=== PATIENT | male | born 1935 | race Caucasian/White ===

== ENCOUNTER 2017-04-22 11:16 | Inpatient (IN) | payer OTHER ==
[~2017-04-22] VITALS: Ht 175.3 cm; Wt 85.5 kg
[~2017-04-22 11:16] MED LIST: ALBU90OI61 INH; AMLO5 PO; AMOCLA875 PO; ASPI81CH PO; AZIT250 PO; AZOR PO; BENAML10/5 PO; CEFP500 PO; CEPH500 PO; Ciprodex Otic7.5 ML RIGHTEAR; Citalopram HBr20 MG PO; Cleocin HCl150 MG PO; DICL25ER PO; DOCU100 PO; GLIP10ER PO; Glucophage1000 MG PO; HYDCHL25 PO; LOSA50 PO; MECL25 PO; METO100ER PO; Melatonin5 M1 PO; NEBI10 PO; OLME20 PO; OXYACE5T PO; PROCODE120 PO
[2017-04-22 11:54] LABS: BASOPHILS ABSOLUTE AUTO 0.04 K/mm3 (0.00-0.23); BASOPHILS PERCENT AUTO 1 % (0-2); EOSINOPHILS ABSOLUTE AUTO 0.04 K/mm3 (0.00-0.68); EOSINOPHILS PERCENT AUTO 1 % (0-6); Hematocrit 38.2 % (37.0-53.0); Hemoglobin 12.7 g/dL (13.5-17.5); IMMATURE GRAN ABSOLUTE AUTO 0.02 K/mm3 (0.00-0.10); IMMATURE GRAN PERCENT AUTO 0 % (0-1); LYMPHOCYTES ABSOLUTE AUTO 0.65 K/mm3 (0.84-5.20); LYMPHOCYTES PERCENT AUTO 10 % (21-46); MONOCYTES ABSOLUTE AUTO 0.75 K/mm3 (0.16-1.47); MONOCYTES PERCENT AUTO 11 % (4-13); Mean Corpuscular HGB 28.7 pg (26.0-34.0); Mean Corpuscular HGB Conc 33.2 g/dL (31.5-36.5); Mean Corpuscular Volume 86 fL (80-100); Mean Platelet Volume 11.1 fL (9.1-12.4); NEUTROPHILS ABSOLUTE AUTO 5.28 K/mm3 (1.96-9.15); NEUTROPHILS PERCENT AUTO 78 % (41-73); Platelet Count 187 K/mm3 (150-400); RDW Coefficient Variation 13.1 % (11.7-14.2); RDW Standard Deviation 40.8 fL (35.1-46.3); Red Blood Cell Count 4.43 M/mm3 (4.30-5.90); White Blood Cell Count 6.78 K/mm3 (4.00-11.30)
[2017-04-22 12:15] LABS: Alanine Aminotransfer (ALT/SGP 22 U/L (12-78); Albumin, Blood 3.3 g/dL (3.4-5.0); Alk Phos 68 U/L (50-136); Anion Gap 10 mmol/L (6-16); Aspartate Aminotrans (AST/SGOT 18 U/L (12-37); Bilirubin, Total 0.4 mg/dL (0.1-1.0); Blood Urea Nitrogen 19 mg/dL (8-24); Bun/Creatinine Ratio 14.7 (12.0-20.0); CO2, Blood 23 mmol/L (21-32); Calcium, Blood 8.4 mg/dL (8.5-10.1); Chloride, Blood 107 mmol/L (98-108); Creatinine, Blood 1.29 mg/dL (0.60-1.20); Globulin, Blood 3.3 g/dL (2.2-4.0); Glomerular Filtration Rate 57 (60-); Glucose, Blood 201 mg/dL (70-99); Potassium, Blood 3.4 mmol/L (3.5-5.5); Sodium, Blood 140 mmol/L (136-145); Total Protein, Blood 6.6 g/dL (6.4-8.2)
[2017-04-22 12:17] LABS: Influenza A Positive (NEGATIVE); Influenza B Negative (NEGATIVE)
[2017-04-22 16:54] LABS: Troponin I <0.015 ng/mL (0.000-0.040)
[2017-04-22 18:11] LABS: Source, Urine Clean Catch
[2017-04-22 18:20] LABS: Appearance, Urine Clear (Clear); Bilirubin, Urine Neg (Neg); Blood, Urine Neg (Neg); Color, Urine Yellow (P-Yellow); Glucose Qualitative, Urine Neg (Neg); Ketones, Urine Neg (Neg); Leukocyte Esterase, Urine Neg (Neg); Nitrite, Urine Neg (Neg); Protein, Urine 2+ (Neg); Urobilinogen, Urine NORM (Normal)
[2017-04-22 18:41] LABS: Bacteria Rare /hpf; Red Blood Cells, Urine 0-2 /hpf (0-2); Squamous Epithelial Cells Rare /hpf (Few); White Blood Cells, Urine 0-2 /hpf (0-5)
[2017-04-22 21:49] LABS: Calcium, Blood 7.8 mg/dL (8.5-10.1); Creatinine, Blood 1.38 mg/dL (0.60-1.20); Potassium, Blood 3.6 mmol/L (3.5-5.5)
[2017-04-23 04:50] LABS: BASOPHILS ABSOLUTE AUTO 0.02 K/mm3 (0.00-0.23); BASOPHILS PERCENT AUTO 0 % (0-2); EOSINOPHILS ABSOLUTE AUTO 0.01 K/mm3 (0.00-0.68); EOSINOPHILS PERCENT AUTO 0 % (0-6); Hematocrit 33.5 % (37.0-53.0); IMMATURE GRAN ABSOLUTE AUTO 0.02 K/mm3 (0.00-0.10); IMMATURE GRAN PERCENT AUTO 0 % (0-1); LYMPHOCYTES ABSOLUTE AUTO 1.14 K/mm3 (0.84-5.20); LYMPHOCYTES PERCENT AUTO 16 % (21-46); MONOCYTES ABSOLUTE AUTO 0.64 K/mm3 (0.16-1.47); MONOCYTES PERCENT AUTO 9 % (4-13); Mean Corpuscular HGB Conc 32.8 g/dL (31.5-36.5); Mean Corpuscular Volume 88 fL (80-100); Mean Platelet Volume 10.9 fL (9.1-12.4); NEUTROPHILS ABSOLUTE AUTO 5.15 K/mm3 (1.96-9.15); NEUTROPHILS PERCENT AUTO 74 % (41-73); Platelet Count 150 K/mm3 (150-400); RDW Coefficient Variation 13.4 % (11.7-14.2); RDW Standard Deviation 43.8 fL (35.1-46.3); Red Blood Cell Count 3.79 M/mm3 (4.30-5.90); White Blood Cell Count 6.98 K/mm3 (4.00-11.30)
[2017-04-23 05:07] LABS: Albumin, Blood 2.9 g/dL (3.4-5.0); Bilirubin, Total 0.2 mg/dL (0.1-1.0); Calcium, Blood 7.2 mg/dL (8.5-10.1); Creatinine, Blood 1.27 mg/dL (0.60-1.20); Globulin, Blood 2.9 g/dL (2.2-4.0); Magnesium, Blood 1.4 mg/dL (1.6-2.4); Potassium, Blood 3.8 mmol/L (3.5-5.5); Total Protein, Blood 5.8 g/dL (6.4-8.2)
[2017-04-24] MEDS ORDERED: OSELTAMIVIR PO (09:56)
[2017-04-24] MEDS ORDERED: DELTASONE20 MG PO (10:03)
== END 2017-04-24 10:48 | disposition home or self-care (01) | DRG 194 ==
LOC: ER 11:16 → MEDS 14:14 → PCU 16:15
PROVIDERS: Emergency Medicine; Family Medicine; Internal Medicine
DX: J10.1 Influenza due to other identified influenza virus with other respiratory manifestations (principal); I42.9 Cardiomyopathy, unspecified; N17.9 Acute kidney failure, unspecified; E11.22 Type 2 diabetes mellitus with diabetic chronic kidney disease; E11.65 Type 2 diabetes mellitus with hyperglycemia; E86.0 Dehydration; J45.909 Unspecified asthma, uncomplicated; R53.81 Other malaise; R32 Unspecified urinary incontinence; I12.9 Hypertensive chronic kidney disease with stage 1 through stage 4 chronic kidney disease, or unspecified chronic kidney disease; N18.9 Chronic kidney disease, unspecified; F32.9 Major depressive disorder, single episode, unspecified; E87.6 Hypokalemia; R09.02 Hypoxemia; T38.0X5A Adverse effect of glucocorticoids and synthetic analogues, initial encounter; Z79.82 Long term (current) use of aspirin; Z79.899 Other long term (current) drug therapy; Z79.84 Long term (current) use of oral hypoglycemic drugs; Z88.2 Allergy status to sulfonamides
CPT/HCPCS: 36415; 71045; 71046; 80048; 80053; 81001; 82947; 83605; 83735; 83880; 84443; 84484; 85025; 87804; 93005; 93010; 93306; 94640; 94760; 96361; 96372; 96374; 99285; J0456; J0696; J1650; J2405; J3480; J7030; J7050

== ENCOUNTER 2017-07-17 14:05 | Emergency (ER) | payer OTHER ==
[~2017-07-17] VITALS: Ht 177.8 cm; Wt 84.4 kg
[~2017-07-17 14:05] MED LIST changes: +DELTASONE20 MG PO; +OSELTAMIVIR PO
[2017-07-17 14:52] LABS: BASOPHILS ABSOLUTE AUTO 0.07 K/mm3 (0.00-0.23); BASOPHILS PERCENT AUTO 1 % (0-2); EOSINOPHILS ABSOLUTE AUTO 0.49 K/mm3 (0.00-0.68); EOSINOPHILS PERCENT AUTO 6 % (0-6); Hematocrit 39.6 % (37.0-53.0); Hemoglobin 13.2 g/dL (13.5-17.5); IMMATURE GRAN ABSOLUTE AUTO 0.03 K/mm3 (0.00-0.10); IMMATURE GRAN PERCENT AUTO 0 % (0-1); LYMPHOCYTES ABSOLUTE AUTO 1.67 K/mm3 (0.84-5.20); LYMPHOCYTES PERCENT AUTO 21 % (21-46); MONOCYTES ABSOLUTE AUTO 0.87 K/mm3 (0.16-1.47); MONOCYTES PERCENT AUTO 11 % (4-13); Mean Corpuscular HGB 28.9 pg (26.0-34.0); Mean Corpuscular HGB Conc 33.3 g/dL (31.5-36.5); Mean Corpuscular Volume 87 fL (80-100); Mean Platelet Volume 10.6 fL (9.1-12.4); NEUTROPHILS ABSOLUTE AUTO 5.03 K/mm3 (1.96-9.15); NEUTROPHILS PERCENT AUTO 62 % (41-73); Platelet Count 257 K/mm3 (150-400); RDW Coefficient Variation 14.1 % (11.7-14.2); RDW Standard Deviation 45.1 fL (35.1-46.3); Red Blood Cell Count 4.56 M/mm3 (4.30-5.90); White Blood Cell Count 8.16 K/mm3 (4.00-11.30)
[2017-07-17 15:10] LABS: Alanine Aminotransfer (ALT/SGP 17 U/L (12-78); Albumin, Blood 3.5 g/dL (3.4-5.0); Albumin/Globulin Ratio 0.9 (0.8-1.8); Alk Phos 91 U/L (50-136); Anion Gap 7 mmol/L (6-16); Aspartate Aminotrans (AST/SGOT 22 U/L (12-37); Bilirubin, Total 0.7 mg/dL (0.1-1.0); Blood Urea Nitrogen 25 mg/dL (8-24); Bun/Creatinine Ratio 20.3 (12.0-20.0); CO2, Blood 24 mmol/L (21-32); Calcium, Blood 8.9 mg/dL (8.5-10.1); Chloride, Blood 104 mmol/L (98-108); Creatinine, Blood 1.23 mg/dL (0.60-1.20); Glomerular Filtration Rate >60 (60-); Glucose, Blood 244 mg/dL (70-99); Potassium, Blood 4.3 mmol/L (3.5-5.5); Sodium, Blood 135 mmol/L (136-145); Total Protein, Blood 7.5 g/dL (6.4-8.2)
[2017-07-17 16:50] LABS: Troponin I <0.015 ng/mL (0.000-0.040)
== END 2017-07-17 18:58 | disposition home or self-care (01) ==
LOC: ER 14:05
PROVIDERS: Emergency Medicine
DX: S01.01XA Laceration without foreign body of scalp, initial encounter (principal); I99.8 Other disorder of circulatory system; Z23 Encounter for immunization; I10 Essential (primary) hypertension; E11.9 Type 2 diabetes mellitus without complications; Z88.2 Allergy status to sulfonamides; Z79.899 Other long term (current) drug therapy; Z79.82 Long term (current) use of aspirin; Z79.84 Long term (current) use of oral hypoglycemic drugs; Z79.52 Long term (current) use of systemic steroids; W18.30XA Fall on same level, unspecified, initial encounter
CPT/HCPCS: 36415; 70450; 72100; 72125; 72170; 80053; 84484; 85025; 90471; 90714; 93005; 93010; 96360; 96361; 99284; J7120

== ENCOUNTER 2018-04-09 17:14 | Observation (INO) | payer OTHER ==
[~2018-04-09] VITALS: Ht 208.3 cm; Wt 84.3 kg
[~2018-04-09 17:14] MED LIST changes: -ASPI81CH PO; +Aspirin EC81 MG PO
[2018-04-09 18:42] LABS: PCO2 Arterial 37.7 mmHg (35-45); PO2 Arterial 69.3 mmHg (80-100); pH Blood Arterial 7.45 (7.35-7.45)
[2018-04-09 18:48] LABS: BASOPHILS ABSOLUTE AUTO 0.04 K/mm3 (0.00-0.23); BASOPHILS PERCENT AUTO 0 % (0-2); EOSINOPHILS ABSOLUTE AUTO 0.02 K/mm3 (0.00-0.68); EOSINOPHILS PERCENT AUTO 0 % (0-6); Hematocrit 41.1 % (37.0-53.0); Hemoglobin 13.8 g/dL (13.5-17.5); IMMATURE GRAN ABSOLUTE AUTO 0.04 K/mm3 (0.00-0.10); IMMATURE GRAN PERCENT AUTO 0 % (0-1); LYMPHOCYTES ABSOLUTE AUTO 1.47 K/mm3 (0.84-5.20); LYMPHOCYTES PERCENT AUTO 14 % (21-46); MONOCYTES PERCENT AUTO 8 % (4-13); Mean Corpuscular HGB 29.4 pg (26.0-34.0); Mean Corpuscular HGB Conc 33.6 g/dL (31.5-36.5); Mean Corpuscular Volume 87 fL (80-100); Mean Platelet Volume 11.1 fL (9.1-12.4); NEUTROPHILS ABSOLUTE AUTO 8.11 K/mm3 (1.96-9.15); NEUTROPHILS PERCENT AUTO 77 % (41-73); Platelet Count 206 K/mm3 (150-400); RDW Coefficient Variation 13.7 % (11.7-14.2); RDW Standard Deviation 43.4 fL (35.1-46.3); White Blood Cell Count 10.48 K/mm3 (4.00-11.30)
[2018-04-09 18:56] LABS: Albumin, Blood 3.5 g/dL (3.4-5.0); Albumin/Globulin Ratio 0.9 (0.8-1.8); Bilirubin, Total 0.6 mg/dL (0.1-1.0); Bun/Creatinine Ratio 15.1 (12.0-20.0); Calcium, Blood 9.5 mg/dL (8.5-10.1); Creatinine, Blood 1.26 mg/dL (0.60-1.20); Globulin, Blood 3.9 g/dL (2.2-4.0); Magnesium, Blood 1.4 mg/dL (1.6-2.4); Potassium, Blood 3.5 mmol/L (3.5-5.5); Total Protein, Blood 7.4 g/dL (6.4-8.2)
[2018-04-09 19:03] LABS: Influenza A Negative (NEGATIVE); Influenza B Negative (NEGATIVE)
[2018-04-09 19:47] LABS: Source, Urine Catheter
[2018-04-09 20:03] LABS: Bilirubin, Urine Neg (Neg); Blood, Urine 4+ (Neg); Glucose Qualitative, Urine Neg (Neg); Ketones, Urine Neg (Neg); Leukocyte Esterase, Urine Neg (Neg); Nitrite, Urine Neg (Neg); Protein, Urine 3+ (Neg); Urobilinogen, Urine NORM (Normal)
[2018-04-09 20:13] LABS: Appearance, Urine Clear (Clear); Color, Urine Yellow (P-Yellow)
[2018-04-09 20:14] LABS: White Blood Cells, Urine 0-2 /hpf (0-5)
[2018-04-09 20:15] LABS: Bacteria Not Seen /hpf; Squamous Epithelial Cells Rare /hpf (Few)
[2018-04-09 21:10] LABS: U Amphetamine Screen Not Detected; U Barbituate Screen Not Detected; U Benzodiazapine Screen Not Detected; U Buprenorphine Screen Not Detected; U Cannabinoids Screen Not Detected; U Cocaine Screen Not Detected; U Methadone Screen Not Detected; U Methamphetamine Screen Not Detected; U Opiates Screen Not Detected; U Oxycodone Screen Not Detected; U Phencyclidine Screen Not Detected; U Propoxyphene Screen Not Detected
--- NOTE | 2018-04-10 04:49 | NUR ---
FEBRILE IN ED AND HERE, BUT TEMP IMPROVING, A/O BUT FORGETFUL, [place], FAMILY AT THE BEDSIDE, TOO WEAK TO POSITION SELF IN BED, GAYTAN FOR RETENTION, 20G L FA, NEG FLU, LACTIC 1.9, VERY INVOLVED IN CARE. SLEPT WELL.
[2018-04-10 05:41] LABS: BASOPHILS ABSOLUTE AUTO 0.05 K/mm3 (0.00-0.23); BASOPHILS PERCENT AUTO 1 % (0-2); EOSINOPHILS ABSOLUTE AUTO 0.08 K/mm3 (0.00-0.68); EOSINOPHILS PERCENT AUTO 1 % (0-6); Hematocrit 40.8 % (37.0-53.0); Hemoglobin 13.6 g/dL (13.5-17.5); IMMATURE GRAN ABSOLUTE AUTO 0.02 K/mm3 (0.00-0.10); IMMATURE GRAN PERCENT AUTO 0 % (0-1); LYMPHOCYTES ABSOLUTE AUTO 1.82 K/mm3 (0.84-5.20); LYMPHOCYTES PERCENT AUTO 20 % (21-46); MONOCYTES ABSOLUTE AUTO 1.03 K/mm3 (0.16-1.47); MONOCYTES PERCENT AUTO 11 % (4-13); Mean Corpuscular HGB 29.2 pg (26.0-34.0); Mean Corpuscular HGB Conc 33.3 g/dL (31.5-36.5); Mean Corpuscular Volume 88 fL (80-100); NEUTROPHILS PERCENT AUTO 68 % (41-73); Platelet Count 189 K/mm3 (150-400); RDW Coefficient Variation 13.9 % (11.7-14.2); RDW Standard Deviation 43.9 fL (35.1-46.3); Red Blood Cell Count 4.66 M/mm3 (4.30-5.90)
[2018-04-10 06:04] LABS: Albumin, Blood 3.3 g/dL (3.4-5.0); Albumin/Globulin Ratio 0.9 (0.8-1.8); Bun/Creatinine Ratio 17.3 (12.0-20.0); Creatinine, Blood 1.39 mg/dL (0.60-1.20); Globulin, Blood 3.7 g/dL (2.2-4.0); Magnesium, Blood 1.6 mg/dL (1.6-2.4); Potassium, Blood 3.6 mmol/L (3.5-5.5)
[2018-04-10] MEDS ORDERED: GLIP10ER PO (12:37)
[2018-04-10] MEDS ORDERED: Mobic15 MG PO (12:38)
[2018-04-10] MEDS ORDERED: GABA300 PO (12:39)
[2018-04-10 12:47] LABS: Adenovirus Not Detected (NOT DETECT); Bordetella pertussis Not Detected (NOT DETECT); Chlamydophila pneumoniae Not Detected (NOT DETECT); Coronavirus 229E Not Detected (NOT DETECT); Coronavirus HKU1 Not Detected (NOT DETECT); Coronavirus NL63 Not Detected (NOT DETECT); Coronavirus OC43 Not Detected (NOT DETECT); Human Metapneumovirus Not Detected (NOT DETECT); Influenza A/2009-H1 Not Detected (NOT DETECT); Influenza A/H1 Not Detected (NOT DETECT); Influenza A/H3 Not Detected (NOT DETECT); Influenza B Not Detected (NOT DETECT); Mycoplasma pneumoniae Not Detected (NOT DETECT); Parainfluenza Virus 1 Not Detected (NOT DETECT); Parainfluenza Virus 2 Not Detected (NOT DETECT); Parainfluenza Virus 3 Not Detected (NOT DETECT); Parainfluenza Virus 4 Not Detected (NOT DETECT); Respiratory Syncytial Virus Not Detected (NOT DETECT)
[2018-04-10 14:08] LABS: Human Rhinovirus/Enterovirus Detected (NOT DETECT); Influenza A Not Detected (NOT DETECT)
--- NOTE | 2018-04-10 19:00 | NUR ---
PATIENT ALERT AND ORIENTED. PER S.O. PATIENT DOES NOT ACT NORMAL AND REQUEST CT HEAD. UNABLE TO REACH HOSPITALIST BY PHONE, SO NIGHT RN ADVISED. GAYTAN D'C AND VOID AFTER 50 ML. ADVISED WILL NEED TO VOID MORE BY 2129 OR BLADDER SCAN AND POSSOBLE REINSERT CATH IF LARGE AMOUT IN BLADDER. VSS. NO FEVER THIS SHIFT. MAX 2 PERSON ASSIST TO STAND AND PIVOT. WEAK. BED IN LOW POSITION. CALL LIGHT WITHIN REACH. REPORT TO NIGHT RN
--- NOTE | 2018-04-11 05:07 | NUR ---
VSS, AFEBRILE, A/O BUT CONFUSED AT TIMES, INCONT B/B OVER NOC. CBG ACHS, 20G L FA, SEVERELY [place], STILL VERY WEAK, HEAVY 2 PA TO STAND, PT ATTEMPTS TO GET OOB AND SETS OFF BED ALARM, REORIENTS EASILY. PMHX: RECENT DX OF PARKINSONS, DM, CKD, HTN, DEPRESSION, INSOMNIA. FAMILY IS VERY INVOLVED IN CARE.
--- NOTE | 2018-04-11 16:57 | NUR ---
PT DISCHAREED AT 1630 WITH THIS DIRECTOR OF PRECLINICAL RESEARCH ON ANOTHER RN TO ASSIST IN GETTING INTO WIFES SUV. PT WAS ASSISTED INTO SUV AND PAPERS WERE REVEIWED AND EDUCATIONAL MATERIAL SENT WITH PT. PT MUCH MORE ALERT TODAY AND WAS MUCH STRONGER WITH HIS AMBULATIONS. PT SHOWED NO DISTRESS AND WAS CONFIDENT THEY WOULD BE ABLE TO CARE FOR PT WELL AT HOME WITH THE EXTRA HOME HEALTH. IV REMOVE PRIOR TO DISCHARGE NO DISTRESS NOTED.
== END 2018-04-11 16:37 | disposition home or self-care (01) ==
LOC: ER 17:14 → MEDS 17:15
PROVIDERS: Emergency Medicine; Nurse Practitioner Acute Care; ADMIT Internal Medicine
DX: R50.9 Fever, unspecified (principal); R79.1 Abnormal coagulation profile; E86.0 Dehydration; E87.1 Hypo-osmolality and hyponatremia; G20 Parkinson's disease; F02.80 Dementia in other diseases classified elsewhere, unspecified severity, without behavioral disturbance, psychotic disturbance, mood disturbance, and anxiety; G47.00 Insomnia, unspecified; I12.9 Hypertensive chronic kidney disease with stage 1 through stage 4 chronic kidney disease, or unspecified chronic kidney disease; E11.22 Type 2 diabetes mellitus with diabetic chronic kidney disease; N18.3 Chronic kidney disease, stage 3 (moderate); F32.9 Major depressive disorder, single episode, unspecified; Z79.82 Long term (current) use of aspirin; Z79.899 Other long term (current) drug therapy; Z88.1 Allergy status to other antibiotic agents; Z88.2 Allergy status to sulfonamides
CPT/HCPCS: 36415; 36600; 51702; 71045; 80053; 81001; 82803; 82947; 83605; 83735; 84145; 85025; 85379; 85651; 86140; 87040; 87486; 87581; 87633; 87798; 87804; 93005; 93010; 93970; 96372; 97112; 97116; 97163; 97530; 99285-25; G0378; J1650; J3475; J7030

== ENCOUNTER 2018-05-08 13:12 | Observation (INO) | payer OTHER ==
[~2018-05-08] VITALS: Ht 177.8 cm; Wt 84.1 kg
[~2018-05-08 13:12] MED LIST changes: +GABA300 PO; +Mobic15 MG PO
[2018-05-08 13:51] LABS: BASOPHILS ABSOLUTE AUTO 0.04 K/mm3 (0.00-0.23); BASOPHILS PERCENT AUTO 1 % (0-2); EOSINOPHILS ABSOLUTE AUTO 0.11 K/mm3 (0.00-0.68); EOSINOPHILS PERCENT AUTO 1 % (0-6); Hematocrit 42.4 % (37.0-53.0); Hemoglobin 13.8 g/dL (13.5-17.5); IMMATURE GRAN ABSOLUTE AUTO 0.03 K/mm3 (0.00-0.10); IMMATURE GRAN PERCENT AUTO 0 % (0-1); LYMPHOCYTES ABSOLUTE AUTO 1.69 K/mm3 (0.84-5.20); LYMPHOCYTES PERCENT AUTO 20 % (21-46); MONOCYTES ABSOLUTE AUTO 1.06 K/mm3 (0.16-1.47); MONOCYTES PERCENT AUTO 13 % (4-13); Mean Corpuscular HGB Conc 32.5 g/dL (31.5-36.5); Mean Corpuscular Volume 89 fL (80-100); NEUTROPHILS ABSOLUTE AUTO 5.56 K/mm3 (1.96-9.15); NEUTROPHILS PERCENT AUTO 65 % (41-73); Platelet Count 198 K/mm3 (150-400); RDW Standard Deviation 45.1 fL (35.1-46.3); Red Blood Cell Count 4.76 M/mm3 (4.30-5.90); White Blood Cell Count 8.49 K/mm3 (4.00-11.30)
[2018-05-08 14:07] LABS: Alanine Aminotransfer (ALT/SGP 27 U/L (12-78); Albumin, Blood 3.4 g/dL (3.4-5.0); Albumin/Globulin Ratio 0.9 (0.8-1.8); Alk Phos 93 U/L (50-136); Anion Gap 9 mmol/L (6-16); Aspartate Aminotrans (AST/SGOT 20 U/L (12-37); Bilirubin, Total 0.5 mg/dL (0.1-1.0); Blood Urea Nitrogen 15 mg/dL (8-24); CO2, Blood 23 mmol/L (21-32); Calcium, Blood 8.5 mg/dL (8.5-10.1); Chloride, Blood 108 mmol/L (98-108); Creatinine, Blood 1.25 mg/dL (0.60-1.20); Globulin, Blood 3.8 g/dL (2.2-4.0); Glomerular Filtration Rate 59 (60-); Glucose, Blood 97 mg/dL (70-99); Potassium, Blood 3.9 mmol/L (3.5-5.5); Sodium, Blood 140 mmol/L (136-145); Total Protein, Blood 7.2 g/dL (6.4-8.2); Troponin I <0.015 ng/mL (0.000-0.040)
[2018-05-08 15:05] LABS: Source, Urine Clean Catch
[2018-05-08 15:24] LABS: Bilirubin, Urine Neg (Neg); Blood, Urine 2+ (Neg); Glucose Qualitative, Urine Neg (Neg); Ketones, Urine 1+ (Neg); Leukocyte Esterase, Urine Neg (Neg); Nitrite, Urine Neg (Neg); Protein, Urine 4+ (Neg); Specific Gravity, Urine 1.025 (1.003-1.022); Urobilinogen, Urine NORM (Normal)
[2018-05-08 15:35] LABS: Appearance, Urine Clear (Clear); Color, Urine Yellow (P-Yellow); Hyaline Casts 0-2 /lpf (0-2)
[2018-05-08 15:36] LABS: Bacteria Mod /hpf; Squamous Epithelial Cells Few /hpf (Few); White Blood Cells, Urine 0-2 /hpf (0-5)
--- NOTE | 2018-05-09 05:14 | NUR ---
SHIFT SUMMARY PT ADMITTED FOR DEHYDRATION. FULL CODE. ELEVATE TEMP THIS NIGHT OF 100.5 DECREASED TO 99.9 AFTER MEDS PER EMAR. ADA DIET WITH CBG AT AC AND HS. LOVENOX FOR DVT PROPHYLAXIS. 1/2 NS AT 100 MLS/HR X 1 BAG. 20 G IV TO R FA. MEDS CRUSHED AT THIS TIME BUT PLOF WAS WHOLE WITH WATER. UNABLE TO TRANSFERS OR STAND AT THIS TIME DUE TO WEAKNESS. ALERT AND ORIENTED ONLY TO SELF, RESPONDS SOME TO HIS NAME BUT UNABLE TO SAY HIS NAME. PT NOTED TO HAVE A HISTORY OF PARKINSONS WITH WORSENING SYMPTOMS LATELY. THE PT PRESENTED TO THE ED FOR INCREASED WEAKNESS AND FALLS. THE DISCHARGED FROM THE HOSPITAL LAST MONTH FOR A VIRAL INFECTION AND SIMILAR S/SX. THE PT HAS HAD POOR ORAL INTAKE FOR THE PAST COUPLE OF DAYS ACCORDING THE PTS . THE PT HAS APPARENTLY STOPPED TAKING HIS PARKINSONS MEDICATIONS FOR APPROXIMATELY THE PAST TWO MONTHS. THE STATED THAT DR. SUMMERS TOLD THEM THE PT DID NOT NEED THEM ANYMORE IF THE PT WAS ACTIVE. IT IS UNCLEAR IF THIS WAS ACCURATE AT THIS TIME. HOWEVER, THE PT IS NOT ACTIVE AT HOME AND WOULD SIT ONLY IN HIS CHAIR READING MOST OF THE TIME. THE PT WAS ABLE TO WALK INDEPENDENTLY AND USE THE BR WITH A CANE AND/OR WALKER. THE PT HAS BEEN VERY LETHARGIC SO FAR SINCE ADMISSION. THE PT HAS SLEPT THE MAJORITY OF THE SHIFT. EASILY AWAKENS WITH CARE AND THEN BACK TO SLEEP. NO APPARENT SIGNS OF ACUTE DISTRESS. FREQUENT VISUAL CHECKS DUE TO PT LIKELY NO ABLE TO USE CALL LIGHT APPROPRIATELY AT THIS TIME.
[2018-05-09] MEDS ORDERED: AMLO5 PO (05:23)
[2018-05-09] MEDS ORDERED: METO100ER PO (05:23)
[2018-05-09] MEDS ORDERED: CHOL10002 (05:24)
[2018-05-09] MEDS ORDERED: VITAMIN B122500 MCG PO (05:25)
[2018-05-09] MEDS ORDERED: HYLAND'S LEG CRAMPS (05:26)
[2018-05-09 05:32] LABS: Hematocrit 40.3 % (37.0-53.0); Hemoglobin 13.2 g/dL (13.5-17.5); Mean Corpuscular HGB 29.5 pg (26.0-34.0); Mean Corpuscular HGB Conc 32.8 g/dL (31.5-36.5); Mean Corpuscular Volume 90 fL (80-100); Mean Platelet Volume 10.9 fL (9.1-12.4); Platelet Count 175 K/mm3 (150-400); RDW Standard Deviation 46.5 fL (35.1-46.3); Red Blood Cell Count 4.48 M/mm3 (4.30-5.90); White Blood Cell Count 7.71 K/mm3 (4.00-11.30)
[2018-05-09 05:49] LABS: Bun/Creatinine Ratio 10.7 (12.0-20.0); Calcium, Blood 8.2 mg/dL (8.5-10.1); Creatinine, Blood 1.31 mg/dL (0.60-1.20); Potassium, Blood 3.5 mmol/L (3.5-5.5)
--- NOTE | 2018-05-09 18:16 | NUR ---
PT IS AOX3 TODAY AND HAS WOKEN UP WELL AND IS DOING MUCH BETTER THAN WHEN HE CAME IN LAST NIGHT. PT HAS BEEN ABLE TO TAKE HIS MEDICAITONS WHOLE WITH WATER AND HAS BEEN TRANSFERED UP INTO CHAIR FOR MEALS. PT IS A VERY HEAVY TWO PERSON WITH WALKER TO TRANSFER AND DOES VERY WELL WITH THE SIT TO STAND. PT WAS GOTTEN UP TO THE TOILET WITH THE SIT TO STAND WELL. PT IN RECLINER EATING DINNER WITH FAMILY VISITING. WILL CONTINUE TO MONITOR.
--- NOTE | 2018-05-10 06:39 | NUR ---
SHIFT SUMMARY: PT IS A&O AT START OF SHIFT, BUT DURING THE NIGHT PT BECOMES MORE DROWSY AND CALLS OUT FOR "AALIYAH". NEW IV PLACED BY BRENDAN MOELLER. BP ELEVATED TONIGHT SBP > 180. ADMINISTERED PRN 10 MG IV HYDRALAZINE WITH RELIEF. PT HAS SEVERAL EPISODES OF INCONTINENCE. PT REPORTS HE IS FEELING A LOT BETTER AND CANNOT RECALL BEING ADMITTED TO THE HOSPITAL. WILL CONT TO MONITOR AND PROVIDE CARE UNTIL PRESUMED BY ONCOMING RN.
--- NOTE | 2018-05-10 15:05 | NUR ---
Met with Leroy and his , Jacque at bedside. Jacque was talkative and expresed enormous stress vick on by Leroy's dissaproving adult children. "No matter what I do, they criticize me." She is tearful when talking about this. Apparently, his children are critical, but offer no help "whatsoever." They all live locally. Jacque is clearly emotionally and physically exhausted. She responded well to emotional affirmation and gentle director of counseling. Strongly encouraged self-care while Leroy is hospitalized. They are non-sabianist. Jacque admits current stress-level is unsustainable. She is willing to back to counseling. Leroy said very little, but when he did, it was about the placement of random things at home. I did not address code-status. I will remain available.
--- NOTE | 2018-05-10 16:10 | NUR ---
DISCHARGE PT SLEPT MUCH OF MORNING UNTIL APPROX 0930. IN TO ASSIST HIM WITH BF. PHYTHER IN FOR [place], STATE PT CONTINUES 2 ASSIST OF SIT-STAND LIFT, UP TO CHAIR. DR GRIFFITHS IN TO SEE PT/, AGREES FOR NEED FOR SNF/REHAB. [facility] ARRANGE FOR TRANSFER TO [facility]. REPORT CALLED TO NR RN. TRANSPORT ARRANGED FOR 1700. IV D/C INTACT. BELONGINGS GATHERED.
--- NOTE | 2018-05-10 16:27 | NUR ---
Pt is discharging today. I was called to room by JAVIER, asking to talk to and patient. Reviewed with EVELYN Ochoa. She reports that patient, for whatever reason, has not been taking his Parkinson's medication. She is concerned that the pt will be too difficult for his to handle at home, she is anticipating decline of patient. It would be appropriate to discuss code status and advance care planning on next visit to the hospital. Pt at high risk for readmission after his completion of rehab at the skilled facility due to his 's inablility to care for him at home. Rehab may not help in the rn long term care with the pt's Parkinson's disease.
[2018-05-10] MEDS ORDERED: CARBIDOPA LEVO PO (16:52)
== END 2018-05-10 17:31 ==
LOC: ER 13:12 → ERHOLD 13:13 → MEDS 21:25 → ENPENDDIS 05-10 16:03 → MEDS 05-10 17:31
PROVIDERS: Emergency Medicine; ADMIT Internal Medicine
DX: G20 Parkinson's disease (principal); G92 Toxic encephalopathy; E86.0 Dehydration; G47.00 Insomnia, unspecified; R10.9 Unspecified abdominal pain; K59.00 Constipation, unspecified; R50.9 Fever, unspecified; M79.2 Neuralgia and neuritis, unspecified; I12.9 Hypertensive chronic kidney disease with stage 1 through stage 4 chronic kidney disease, or unspecified chronic kidney disease; E11.22 Type 2 diabetes mellitus with diabetic chronic kidney disease; N18.3 Chronic kidney disease, stage 3 (moderate); F32.9 Major depressive disorder, single episode, unspecified; Z88.2 Allergy status to sulfonamides; Z79.82 Long term (current) use of aspirin; Z79.899 Other long term (current) drug therapy
CPT/HCPCS: 36415; 70450; 71046; 74018; 80048; 80053; 81001; 82947; 84484; 85025; 85027; 87086; 92523; 93005; 93010; 96360; 96361; 97110; 97162; 97166; 97530; 99285-25; G0378; J0360; J1650; J7030

== ENCOUNTER 2019-02-01 17:25 | Inpatient (IN) | payer OTHER ==
[~2019-02-01] VITALS: Ht 175.3 cm; Wt 74.5 kg
[~2019-02-01 17:25] MED LIST changes: -Aspirin EC81 MG PO; -Glucophage1000 MG PO; +HYLAND'S LEG CRAMPS; -LOSA50 PO; -Melatonin5 M1 PO
[2019-02-01 17:48] LABS: BASOPHILS ABSOLUTE AUTO 0.04 K/mm3 (0.00-0.23); BASOPHILS PERCENT AUTO 0 % (0-2); EOSINOPHILS PERCENT AUTO 0 % (0-6); Hematocrit 33.2 % (37.0-53.0); Hemoglobin 10.7 g/dL (13.5-17.5); IMMATURE GRAN ABSOLUTE AUTO 0.07 K/mm3 (0.00-0.10); IMMATURE GRAN PERCENT AUTO 0 % (0-1); LYMPHOCYTES ABSOLUTE AUTO 2.39 K/mm3 (0.84-5.20); LYMPHOCYTES PERCENT AUTO 14 % (21-46); MONOCYTES ABSOLUTE AUTO 1.03 K/mm3 (0.16-1.47); MONOCYTES PERCENT AUTO 6 % (4-13); Mean Corpuscular HGB 28.5 pg (26.0-34.0); Mean Corpuscular HGB Conc 32.2 g/dL (31.5-36.5); Mean Corpuscular Volume 88 fL (80-100); NEUTROPHILS ABSOLUTE AUTO 13.03 K/mm3 (1.96-9.15); NEUTROPHILS PERCENT AUTO 79 % (41-73); Platelet Count 250 K/mm3 (150-400); RDW Standard Deviation 48.6 fL (35.1-46.3); Red Blood Cell Count 3.76 M/mm3 (4.30-5.90); White Blood Cell Count 16.56 K/mm3 (4.00-11.30)
[2019-02-01 18:11] LABS: Albumin, Blood 2.4 g/dL (3.4-5.0); Albumin/Globulin Ratio 0.6 (0.8-1.8); Bilirubin, Total 1.1 mg/dL (0.1-1.0); Bun/Creatinine Ratio 16.1 (12.0-20.0); Calcium, Blood 8.4 mg/dL (8.5-10.1); Creatinine, Blood 2.74 mg/dL (0.60-1.20); Globulin, Blood 4.2 g/dL (2.2-4.0); Potassium, Blood 3.6 mmol/L (3.5-5.5); Total Protein, Blood 6.6 g/dL (6.4-8.2)
[2019-02-01 20:00] LABS: International Normalized Ratio 1.15
[2019-02-01 20:58] LABS: Blood, Urine 2+ (Neg); Glucose Qualitative, Urine 1+ (Neg); Ketones, Urine 1+ (Neg); Leukocyte Esterase, Urine 1+ (Neg); Nitrite, Urine Neg (Neg); Protein, Urine 4+ (Neg); Source, Urine Clean Catch; Specific Gravity, Urine 1.025 (1.003-1.022); Urobilinogen, Urine 2+ (Normal)
[2019-02-01] MEDS ORDERED: METFORMIN HCL1000 M1 PO (20:58)
[2019-02-01] MEDS ORDERED: Aspirin EC81 MG PO (20:58)
[2019-02-01] MEDS ORDERED: GLIP5ER PO (20:59)
[2019-02-01] MEDS ORDERED: LOSA50 PO (20:59)
[2019-02-01] MEDS ORDERED: METO50ER PO (21:00)
[2019-02-01 21:03] LABS: Bilirubin, Urine 1+ (Neg)
[2019-02-01] MEDS ORDERED: Sinemet 25-1001 EACH PO (21:03)
[2019-02-01 21:04] LABS: Appearance, Urine Hazy (Clear); Color, Urine Yellow (P-Yellow)
[2019-02-01 21:06] LABS: Amorphous Light (0-Heavy); Bacteria Many /hpf; Red Blood Cells, Urine Rare /hpf (0-2); Squamous Epithelial Cells Few /hpf (Few); White Blood Cells, Urine 0-2 /hpf (0-5)
[2019-02-01 21:07] LABS: Hyaline Casts 0-2 /lpf (0-2)
[2019-02-01] MEDS ORDERED: AMLO10 PO (21:07)
[2019-02-01] MEDS ORDERED: Melatonin5 M1 PO (21:08)
[2019-02-01] MEDS ORDERED: VITAMIN D31000 UNI2 PO (21:09)
[2019-02-01] MEDS ORDERED: VITAMIN B-121000 MC2 PO (21:10)
[2019-02-01] MEDS ORDERED: MELA3 PO (21:42)
--- NOTE | 2019-02-01 22:00 | NUR ---
PT ADMITTED TO ROOM ICU 6 ON ICU INPATIENT STATUS FROM ED. TO ROOM AT 2049. SLIDE TRANSFERRED TO BED. REPORT RECEIVED AND CHART REVIEWED. PT PRESENTS VERY [place] PASS. DENIES CHEST PAIN OR PRESSURE. VERY TACHYPNEID WITH RESPIRATORY RATES 40'S-50'S BREATHS PER MINUTE. PLACED O2 AT 2 L/M PER NASAL CANNULA, AND HAVE NOTED RESPIRATORY RATE HAS DECREASED. PT RECEIVES LASIX, AND PLACEMENT OF GAYTAN CATHETER. HAS STARTED ON HEPARIN DRIP PER PHARMACY DOSING. INFLUENZA INJECTION IN LEFT DELTOID. REPEAT EKG DONE SECONDARY TO POSSIBLE INCREASING ST IN LEADS II, III, AND AVF. CALL MADE TO DR FINNEY AND HE IS SHOWN EKG. DR TSANG MADE AWARE. TARA, REPORTING DEVELOPER SPEAKS WITH CARDIOLOGISTS. NO PLANS FOR WILDLIFE MANAGER TONIGHT SECONDARY TO PT'S RENAL DYSFUNCTION, AND BEING THE PT IS NOT HAVING ACTIVE CHEST PAIN. WILL MONITOR PT CLOSELY FOR CHEST PAIN OR PRESSURE. PT DOES HAVE LOW GRADE FEVER AT THIS TIME. CURRENTLY 100.7. VERY TANNING CONSULTANT ROOM. DID TURN THERMOSTAT DOWN. WILL MONITOR. PT RECEVING LEVAQUIN AT THIS TIME. MULTIPLE FAMILY MEMEMBERS IN ROOM. WILL REVIEW CHART AND PLAN OF CARE FOR THIS PT.
[2019-02-01 22:37] LABS: Source, Urine Catheter
[2019-02-01 22:42] LABS: Blood, Urine 4+ (Neg); Glucose Qualitative, Urine 1+ (Neg); Ketones, Urine 1+ (Neg); Leukocyte Esterase, Urine 1+ (Neg); Nitrite, Urine Neg (Neg); Protein, Urine 4+ (Neg); Specific Gravity, Urine 1.025 (1.003-1.022); Urobilinogen, Urine 1+ (Normal)
[2019-02-01 22:48] LABS: Appearance, Urine Cloudy (Clear); Bilirubin, Urine 1+ (Neg); Color, Urine Amber (P-Yellow)
[2019-02-01 22:49] LABS: Amorphous Mod (0-Heavy); Bacteria Many /hpf; Hyaline Casts 25-50 /lpf (0-2); Mucus Light (0-Heavy); Squamous Epithelial Cells Few /hpf (Few)
--- NOTE | 2019-02-02 01:00 | NUR ---
PT'S FAMILY AND PT'S LEAVE FOR THE NIGHT. PER PT'S , SHE STATES THAT PT HAS BEEN KNOWN TO PULL OUT CATHETERS AND ALSO IV'S IN PREVIOUS HOSPITAL VISITS. SHE HAS REQUESTED THAT PT HAVE SOFT WRIST RESTRAINTS IN PLACE TO PREVENT HIM FROM PULLING TUBES AND LINES. WHILE OBSERVING PT WHILE FAMILY WAS PRESENT IN ROOM, PT WOULD REACH AND TRY TO PULL AT HIS CATHETER, AND PICK AT HIS IV'S. OPTED TO HONOR THIS REQUEST BY SPOUSE AND PLACE SOFT WRIST RESTRAINTS ON. PT ACCEPTING OF THESE AND DOES NOT PULL AGAINST THEM. WILL RELEASE THESE WHILE THIS RN IS AT BEDSIDE SO HE IS ABLE TO MOVE HIS ARMS ABOUT. PT DOES MAKE ATTEMPT AT PULLING AT LINES WHEN RELEASE WHILE RN AT BEDSIDE. WILL CONTINUE RESTRAINTS FOR PT'S SAFETY. PT CONTINUES TO DENY CHEST PAIN OR PRESSURE. WILL CONTINUE TO MONITOR PT.
[2019-02-02 02:18] LABS: Hematocrit 30.2 % (37.0-53.0); Hemoglobin 9.7 g/dL (13.5-17.5); Mean Corpuscular HGB 28.4 pg (26.0-34.0); Mean Corpuscular HGB Conc 32.1 g/dL (31.5-36.5); Mean Corpuscular Volume 88 fL (80-100); Mean Platelet Volume 11.9 fL (9.1-12.4); Platelet Count 211 K/mm3 (150-400); RDW Coefficient Variation 14.8 % (11.7-14.2); RDW Standard Deviation 48.2 fL (35.1-46.3); Red Blood Cell Count 3.42 M/mm3 (4.30-5.90)
[2019-02-02 02:38] LABS: Albumin, Blood 2.2 g/dL (3.4-5.0); Albumin/Globulin Ratio 0.5 (0.8-1.8); Bun/Creatinine Ratio 17.6 (12.0-20.0); Calcium, Blood 7.8 mg/dL (8.5-10.1); Creatinine, Blood 2.84 mg/dL (0.60-1.20); Globulin, Blood 4.1 g/dL (2.2-4.0); Potassium, Blood 3.5 mmol/L (3.5-5.5); Total Protein, Blood 6.3 g/dL (6.4-8.2)
[2019-02-02 03:20] LABS: Troponin I 64.3 ng/mL (0.000-0.040)
[2019-02-02 03:36] LABS: Creatine Kinase MB 56.7 ng/mL (0.0-3.6); Creatine Kinase MB Index 4.2 (0.0-4.0)
[2019-02-02 04:39] LABS: Adenovirus Not Detected (NOT DETECT); Bordetella pertussis Not Detected (NOT DETECT); Chlamydophila pneumoniae Not Detected (NOT DETECT); Coronavirus 229E Not Detected (NOT DETECT); Coronavirus HKU1 Not Detected (NOT DETECT); Coronavirus NL63 Not Detected (NOT DETECT); Coronavirus OC43 Not Detected (NOT DETECT); Human Metapneumovirus Not Detected (NOT DETECT); Human Rhinovirus/Enterovirus Not Detected (NOT DETECT); Influenza A Not Detected (NOT DETECT); Influenza A/2009-H1 Not Detected (NOT DETECT); Influenza A/H1 Not Detected (NOT DETECT); Influenza A/H3 Not Detected (NOT DETECT); Influenza B Not Detected (NOT DETECT); Mycoplasma pneumoniae Not Detected (NOT DETECT); Parainfluenza Virus 1 Not Detected (NOT DETECT); Parainfluenza Virus 2 Not Detected (NOT DETECT); Parainfluenza Virus 3 Not Detected (NOT DETECT); Parainfluenza Virus 4 Not Detected (NOT DETECT); Respiratory Syncytial Virus Not Detected (NOT DETECT)
[2019-02-02 10:06] LABS: Troponin I 65.1 ng/mL (0.000-0.040)
[2019-02-02 10:24] LABS: Creatine Kinase MB 40.6 ng/mL (0.0-3.6); Creatine Kinase MB Index 3.3 (0.0-4.0)
--- NOTE | 2019-02-02 11:01 | NUR ---
Echocardiogram completed.
--- NOTE | 2019-02-02 12:39 | NUR ---
DR SKY AT BEDSIDE FOR CONSULT WITH PT AND FAMILY. DISCUSSED TREATMENT OPTIONS WITH . NO PLANS TO PURSUE ANGIOGRAM AT THIS TIME, PLAN IS FOR MEDICAL MANAGEMENT.
[2019-02-02 16:40] LABS: Albumin, Blood 2.3 g/dL (3.4-5.0); Albumin/Globulin Ratio 0.5 (0.8-1.8); Bilirubin, Total 0.7 mg/dL (0.1-1.0); Bun/Creatinine Ratio 19.2 (12.0-20.0); Calcium, Blood 7.9 mg/dL (8.5-10.1); Creatinine, Blood 3.02 mg/dL (0.60-1.20); Globulin, Blood 4.4 g/dL (2.2-4.0); Potassium, Blood 3.4 mmol/L (3.5-5.5); Total Protein, Blood 6.7 g/dL (6.4-8.2)
[2019-02-02 17:02] LABS: Troponin I 64.8 ng/mL (0.000-0.040)
--- NOTE | 2019-02-02 18:14 | NUR ---
SHIFT SUMMARY: A%O X 2, RECOGNIZES FAMILY. C/O CP EARLY IN THE SHIFT, UNRELIEVED BY NTG X 3, BUT RESOLVED WITH IV DILAUDID. TROPONINS DOWN TRENDING. CARDIAC RHYTHM IS NOW SR WITH PAC'S, FIRST DEGREE AV BLOCK, BBB, AND ST ELEVATION. BREATH SOUNDS COARSE; ON CPAP WITH 3 L/MIN BLEED IN, CAN GO ONTO NC FOR MEALS WITH NO DECREASE IN O2 SAT, BUT FATIGUES AFTER ABOUT 1 HOUR. IS TOLERATING CPAP WELL. HEPARIN GTT AT 15 UNIT/KG/HR, NEXT PTT DUE AT 2300. NEEDS FEEDING ASSISTANCE. PLAN IS FOR MEDICAL MGMT OF CARDIAC DX.
--- NOTE | 2019-02-02 20:00 | NUR ---
ASSUMED CARE OF PT AT 1915. REPORT RECEIVED. PT PRESENTS IN BED. ALERT AND SOMEWHAT DISORIENTED. PT UNAWARE OF WHAT TOWN HE IS IN AT THE MOMENT. VERY SLOW IN RESPONSE TO QUESTIONS. NO COMPLAINTS OF CHEST PAIN OR PRESSURE AT THIS TIME. REMAINS WITH TACHYPNEA WITH RATES IN 40'S. NO FAMILY IN ROOM AT THIS TIME. WILL REVIEW CHART AND PLAN OF CARE FOR THIS PT.
--- NOTE | 2019-02-02 23:00 | NUR ---
PT CONTINUES ON HEPARIN DRIP WITHOUT ISSUES. COMPLIANT WITH WEARING CPAP. REMAINS WITH RESPIRATORY RATES 30'S TO 40'S PER MINUTE. TOLERATES Q 2 HOUR TURNS IN BED. NO COMPLAINTS OF CHEST PAIN OR PRESSURE WHEN ASKED. WILL CONTINUE TO MONITOR.
--- NOTE | 2019-02-03 01:24 | NUR ---
CHARTING TO REFLECT DAYLIGHT SAVINGS TIME.
[2019-02-03 05:13] LABS: BASOPHILS ABSOLUTE AUTO 0.02 K/mm3 (0.00-0.23); BASOPHILS PERCENT AUTO 0 % (0-2); EOSINOPHILS PERCENT AUTO 0 % (0-6); Hematocrit 30.9 % (37.0-53.0); Hemoglobin 10.2 g/dL (13.5-17.5); IMMATURE GRAN ABSOLUTE AUTO 0.12 K/mm3 (0.00-0.10); IMMATURE GRAN PERCENT AUTO 1 % (0-1); LYMPHOCYTES ABSOLUTE AUTO 1.77 K/mm3 (0.84-5.20); LYMPHOCYTES PERCENT AUTO 11 % (21-46); MONOCYTES ABSOLUTE AUTO 1.03 K/mm3 (0.16-1.47); MONOCYTES PERCENT AUTO 6 % (4-13); Mean Platelet Volume 12.3 fL (9.1-12.4); NEUTROPHILS ABSOLUTE AUTO 13.72 K/mm3 (1.96-9.15); NEUTROPHILS PERCENT AUTO 82 % (41-73); Platelet Count 319 K/mm3 (150-400); RDW Coefficient Variation 15.1 % (11.7-14.2); RDW Standard Deviation 46.1 fL (35.1-46.3); Red Blood Cell Count 3.64 M/mm3 (4.30-5.90); White Blood Cell Count 16.66 K/mm3 (4.00-11.30)
[2019-02-03 05:14] LABS: Mean Corpuscular Volume 85 fL (80-100)
[2019-02-03 05:31] LABS: Bun/Creatinine Ratio 19.4 (12.0-20.0); Calcium, Blood 7.8 mg/dL (8.5-10.1); Creatinine, Blood 3.96 mg/dL (0.60-1.20); Magnesium, Blood 1.9 mg/dL (1.6-2.4)
--- NOTE | 2019-02-03 06:51 | NUR ---
THIS AM, PT WAS REMOVED FROM CPAP. FOR AM WEIGHT, AND MORNING PROCESS. PT WAS PLACED TO 3 L/M O2 PER NASAL CANNULA. PT DOES MAINTAIN SATURATIONS >90 PERCENT. UNFORTUNATELY, PT'S TACHYPNEA INTENSIFIES, AND BECOMES MORE LABORED. HAVE PLACED PT BACK TO CPAP. PT HAS HAD SMALL INCONTINENT STOOL. PT WAS CLEANED, AND ATTENDS CHANGE DONE. PT WAS NOT ABLE TO FOLLOW COMMANDS. IS CURRENTLY RESTING IN BED. HAS NOT HAD ANY COMPLAINTS OF CHEST PAIN OR PRESSURE THIS NIGHT. WILL CONTINUE TO MONITOR PT, AND WILL REPORT OFF TO ONCOMING RN.
--- NOTE | 2019-02-03 07:35 | NUR ---
ASSUMED CARE OF PATIENT. UPON ASSESSMENT, RR 50-53 AND SHALLOW, ON CPAP 3 L BLED IN. CARIDAC RHYTHYM SHOWS ATRIAL FIB, RATE 80-100 WITH PAUSES. DENIES PAIN. SON AND GRANDDAUGHTER AT BEDSIDE. STATED HIS MOUTH IS DRY, GAVE MOUTH SWABS WITH COOL WATER. BP AND O2 SAT STABLE. GAYTAN BAG EMPTY.
--- NOTE | 2019-02-03 08:06 | NUR ---
DR. SKY AT BEDSIDE FOR ASSESSMENT AND TO SPEAK WITH FAMILY. DISCUSSED CHANGES IN PT CONDITION (INCREASED WOB AND RR, CARDIAC DAMAGE). STATED HE WOULD SPEAK TO DR. HEWITT ABOUT PLAN GOING FORWARD.
--- NOTE | 2019-02-03 08:30 | NUR ---
NOTIFIED DR. HEWITT IN PERSON REGARDING CRITICAL VALUE OF LACTIC ACID. RECIEVED VERBAL ORDER FOR NS 500 ML BOLUS, THEN TO RUN THE REST OF THE BAG AT 200 ML/HR. THEN ORDER CHANGED TO 1 L BOLUS, WITH ADDITIONAL LITER TO RUN AT 200 ML/HR. DR. HEWITT AT BEDSIDE FOR ASSESSMENT AND TO SPEAK WITH FAMILY ABOUT CHANGE IN PT'S CONDITION. ASKED THAT HE BE CALLED WHEN PT'S ARRIVES.
--- NOTE | 2019-02-03 09:30 | NUR ---
PATIENT'S MAHNAZ ARRIVED, DR. HEWITT NOTIFIED. PROVIDER CAME TO BEDSIDE FOR FAMILY CONFERENCE. DISCUSSED PROGNOSIS, STATING THAT KIDNEY FUNCTION HAS DECLINED, AND HEART MUSCLE IS IRREVERSIBLY DAMAGED. ASKED TO KNOW WHAT PATIENT'S WISHES WOULD BE IN THE EVENT THAT HIS HEART STOPS. PROVIDER TOLD THAT PERFORMING CPR WOULD BE INJUROUS AND PAINFUL TO PT AND WOULD NOT CHANGE OUTCOME. MAHNAZ STATED THAT SHE WANTS LUDIN TO BE KEPT COMFORTABLE WITH NO HEROIC MEASURES. PT CODE STATUS CHANGED TO DNR. WILL CALL PALLIATIVE CARE TO COME TO BEDSIDE AND SPEAK TO FAMILY.
--- NOTE | 2019-02-03 09:40 | NUR ---
NS BOLUS COMPLETE. DR HEWITT ORDERED BMP TO BE DRAWN AT NOON.
--- NOTE | 2019-02-03 11:20 | NUR ---
DR. NAIK AT BEDSIDE FOR CONSULTATION. STATED SHE WILL SPEAK TO DR HEWITT REGARDING NEW ORDERS.
[2019-02-03 13:13] LABS: Bun/Creatinine Ratio 18.6 (12.0-20.0); Calcium, Blood 7.3 mg/dL (8.5-10.1); Creatinine, Blood 4.3 mg/dL (0.60-1.20); Potassium, Blood 3.8 mmol/L (3.5-5.5)
--- NOTE | 2019-02-03 13:32 | NUR ---
ASKED TO REMOVE CPAP MASK BY FAMILY, THEY COULD NOT UNDERSTAND WHAT THE PT WAS SAYING. REMOVED MASK FOR VERY SHORT PERIOD OF TIME AND EXPLAINED TO FAMILY THE IMPORTANCE OF MINIMIZING THE REMOVAL OF MASK RE: POOR RESP STATUS. FAMILY DOES NOT APPEAR TO UNDERSTAND THE IMPORTANCE OF CPAP, WHEN TRYING TO FURTHER EXPLAIN, FAMILY STATES, "WELL, IT'S JUST FOR A LITTLE BIT, WE DIDN'T JUST RIP IT OFF OF HIM."
--- NOTE | 2019-02-03 16:20 | NUR ---
DR. HEWITT AT BEDSIDE TO SPEAK WITH FAMILY. WILL DRAW DAILY LABS IN THE MORNING, NO LABS FOR TONIGHT. THIS AUTHOR REPORTED URINE OUTPUT 15 ML FOR THIS ENTIRE SHIFT, DR. HEWITT VERBALIZED UNDERSTANDING.
--- NOTE | 2019-02-03 18:28 | NUR ---
SHIFT SUMMARY: A&O TO SELF AND FAMILY. DENIED PAIN DURING THIS SHIFT. CARDIAC RHYTHM IS A FIB, RATE 80'S, BP 100'S/60'S. TOLERATING CPAP, BUT NEEDS BREAKS EVERY HOUR FOR PO FLUIDS/MAOUTH SWABS, CAN TOLERATE NC WITH 3 L/MIN; RR RANGES FROM 40-50, SHALLOW. LACTIC ACID REMAINS ELEVATED AT 3.8, LR INFUSING AT 150/HR. AFEBRILE. HEPARIN INFUSING AT 18 UNITS/KG/HR, 27 ML/HR, NEXT PTT DUE AT 2100. UNABLE TO TAKE PO NUTRITION OR SWALLOW PILLS D/T TACHYPNEA; DR. HEWITT AWARE. GAYTAN DRAINED 23 ML FOR ENTIRE SHIFT, DR. HEWITT WAS NOTIFIED EARLIER OF 15 ML OUT AT THAT POINT IN TIME. VARIOUS FAMILY MEMBERS AT BEDSIDE ALL DAY.
--- NOTE | 2019-02-03 20:38 | NUR ---
ASSUMED CARE OF PT, REPORT RCV'D FROM SUNNI WOLF. PT ALERT TO VERBAL STIMULUS SITTING IN HIGH FOWLERS POSITION ON 3L NC WITH SATS IN LOW 90'S. BEDSIDE SWALLOW EVAL DONE D/T PT'S INCREASING TACHYPNEA AND INCREASED AMS. PT PLACED NPO D/T INCREASED ASPIRATION RISK. PT PLACED BACK ON CPAP WITH 3L NC BLEED IN. PT ABLE TO SLOWLY, BUT VERBALLY RESPOND TO QUESTIONS. PT DENIES CHEST PAIN, SOB. PT REMINDED TO ALERT NURSING STAFF IF HE BEGINS TO EXPERIENCE PAIN OR NEW/WORSENING RESPIRATORY DIFFICULTIES. PT'S FAMILY AT BEDSIDE REQUESTING FOOD PT STATES HE IS HUNGRY. FAMILY UPDATED ON NPO STATUS AND EDUCATED TO ASPIRATION PRECAUTIONS AND RISKS. FAMILY STATES UNDERSTANDING. PLEASE SEE FULL SHIFT ASSESSMENT.
[2019-02-04 04:03] LABS: BASOPHILS ABSOLUTE AUTO 0.03 K/mm3 (0.00-0.23); BASOPHILS PERCENT AUTO 0 % (0-2); EOSINOPHILS PERCENT AUTO 0 % (0-6); Hematocrit 28.4 % (37.0-53.0); Hemoglobin 9.2 g/dL (13.5-17.5); IMMATURE GRAN ABSOLUTE AUTO 0.13 K/mm3 (0.00-0.10); IMMATURE GRAN PERCENT AUTO 1 % (0-1); LYMPHOCYTES ABSOLUTE AUTO 2.41 K/mm3 (0.84-5.20); LYMPHOCYTES PERCENT AUTO 12 % (21-46); MONOCYTES ABSOLUTE AUTO 1.09 K/mm3 (0.16-1.47); MONOCYTES PERCENT AUTO 5 % (4-13); Mean Corpuscular HGB 28.6 pg (26.0-34.0); Mean Corpuscular HGB Conc 32.4 g/dL (31.5-36.5); NEUTROPHILS ABSOLUTE AUTO 16.78 K/mm3 (1.96-9.15); NEUTROPHILS PERCENT AUTO 82 % (41-73); NRBC ABSOLUTE 0.02 K/mm3 (0.00-0.02); NRBC Auto 0.1 /100 WBC (0.0-0.2); Platelet Count 272 K/mm3 (150-400); RDW Coefficient Variation 15.3 % (11.7-14.2); RDW Standard Deviation 49.5 fL (35.1-46.3); Red Blood Cell Count 3.22 M/mm3 (4.30-5.90); White Blood Cell Count 20.44 K/mm3 (4.00-11.30)
[2019-02-04 04:06] LABS: Mean Corpuscular Volume 88 fL (80-100)
[2019-02-04 04:17] LABS: Bun/Creatinine Ratio 18.5 (12.0-20.0); Calcium, Blood 7.2 mg/dL (8.5-10.1); Creatinine, Blood 5.29 mg/dL (0.60-1.20); Potassium, Blood 4.6 mmol/L (3.5-5.5)
--- NOTE | 2019-02-04 06:47 | NUR ---
SHIFT SUMMARY NO ACUTE CHANGES OVERNIGHT. PT TOLERATED CPAP WELL ALL NIGHT. PT CONTINUES TO DENY PAIN WHEN ASKED. PT'S ONLY REQUEST IT A DRINK OF WATER, EXPLAINED TO PT THAT HE IS AT INCREASED RISK OF ASPIRATION D/T INCREASED WORK OF BREATHING, RR, OXYGEN NEEDS. WET MOUTH WITH SWAB AND PERFORMED ORAL CARE. LUNG SOUNDS CLEAR/DIM T/O. PT TACHYPNEIC WITH SHALLOW BREATHS. 45 ML DARK IDALMIS URINARY OUTPUT THIS SHIFT. UA SENT PER PHYSICIAN ORDER. HEPARIN GTT REMAINS AT 18 UNITS/KG/HR. WILL REPORT TO DAYSHIFT NURSE.
--- NOTE | 2019-02-04 07:26 | NUR ---
ASSUMED CARE: PT RESTING QUIETLY IN BED. BILATERAL WRIST RESTRAINTS IN PLACE. CPAP IN PLACE. ST ELEVATION NOTED ON TELE. DENIES NEEDS OR CONCERNS AT THIS TIME.
--- NOTE | 2019-02-04 07:57 | NUR ---
DR HEWITT WAS HERE TO SEE PT AND AWARE THAT PT IS NPO DUE TO FAILED SWALLOW EVAL BY NIGHT RN. ALSO AWARE THAT PT IS UNABLE TO RECIEVE METOPROLOL AND PARKINSON'S MEDS DUE TO THIS. DISCUSSED STATUS CHANGE AND DR STATES HE FEELS PT SHOULD BE MONITORED IN ICU FOR ONE MORE DAY AND POSSIBLE TRANSFER TOMORROW. TECHNOLOGY SALES REPRESENTATIVE AWARE
--- NOTE | 2019-02-04 09:44 | NUR ---
FAMILY AT BEDSIDE, ASKING WHAT PLAN IS. CALL TO PALLIATIVE CARE NURSE TO TOUCH BASE. TIA IN PALLIATIVE CARE STATES SHE WILL BE IN TO DISCUSS WITH FAMILY IN A FEW MINUTES. CARE MANAGEMENT AT BEDSIDE NOW.
--- NOTE | 2019-02-04 10:44 | NUR ---
PALLIATIVE CARE NURSE CAME IN TO SEE PT AND FAMILY. PT C/O ABDOMINAL PAIN WHICH PALLIATIVE CARE NURSE RELAYED TO MD AND DISCUSSED NEED FOR MED FOR AIR HUNGER. FAMILY AWARE THAT DR HEWITT WILL BE BY TO SEE THEM LATER WHEN HE IS AVAILABLE. ENTERED ROOM TO GIVE NEWLY ORDERED ROXINOL, RESPIRATIONS IN 30S-40S BUT PT LOOKS MORE TIRED. REPLACED CPAP MASK. FAMILY REMAINS AT BEDSIDE. NO FURTHER NEEDS OR CONCERNS
--- NOTE | 2019-02-04 11:30 | NUR ---
DR HEWITT DISCUSSED PT'S CASE WITH FAMILY. STATED TO KEEP PT ICU STATUS UNTIL TOMORROW IN ORDER TO BE PREPARED FOR POTENTIAL COMPLICATIONS OF KS AND TUBULAR NECROSIS. DISCUSSED LACK OF ORAL MEDICATIONS ADMINISTERED AND ORDERED SPEECH EVAL BUT DC'D HEPARIN. CPAP IN PLACE, REMAINS OUT OF RESTRAINTS AT THIS TIME.
--- NOTE | 2019-02-04 11:36 | NUR ---
Initial Pal Care visit made after case conference with RN, cycle liaison, CM and RN who called to give update and request visit with family. Visit made to pt's room. Pt is holding his abdomen and breathing short, shallow, rapid breaths 36-40 minute. Pt is 83 yr old with hx of Parkinson's and recent ND, CHF, acute/chronic renal failure and respiratory failure. He is currently NPO due to swallow issues. Pt recently seen my [facility] just prior to this admission. Family has met with hospitalist, Dr Petersen and SUNNI Ruiz already this am. Family, in particular, expresses profound cg distress and fatigue. She and children have conflicting requests for pt to "just be comfortable" and "to get better, well enough to go home in the next week or two". Family understands from Dr Petersen that pt's renal function is worsening and are supportive of pt's long standing and current wishes for NO dialysis. We reviewed other health issues, cardiac, respiratory and neuro. Pt expresses that he wants to go home. expresses she cannot care for pt "like this". Son and family wish to speak to Dr Mishra again to get a complete overview of pt's conditions and prognosis after Dr Petersen's visit. I spoke with pt and family at length regardig comfort care in hospital, hospice, medical management, fine tuning for d/c home when able. I gave them written materials on comfort care to review and discuss further with . Warm blanket placed on pt's abdomen and he stated that felt good. Report given to by phone and verbal order requested/obtained for Roxanol 5-20mg, sl q2hrs prn air hunger. will return and speak with family again. They understood to say pt could not leave for 5-7 days and will discuss that and goals of care further after clarifying prognosis further for son. Report given to RN, CM and healthcare liaison on my visit and family dynamics/request/needs at this time. Report given to clinical technologist with request for visit to pt/family today. Pt's speech is difficult to understand and cognition impaired. He is stating he wants to go home, doesn't want further testing, labs or IV. I am unsure how much he understands in regard to his current health crisis. Pt's family clearly needing time to process and expressed this. Will remain available to answer questions and assist with s/s managment and advanced care planning as requested/indicated.
--- NOTE | 2019-02-04 15:56 | NUR ---
Spiritual Care inital note: I met with large family presence in ICU waiting area. Family memebers in various states of denial, sadness, fear, and anger. , Jacque, clearly ovwewhelmed and physically exhausted. I mainly spoke with Jacque, and she responded well to emotional affirmation and gentle senior counsel. Per Jacque, "We are going to give him 5-7 more days, and see what happens." She admits Leroy's Parkinson's has limited Leroy's QOL to the point of discouragement and frustration on his part. Apparently though, this recent decline has come on quite fast. Family appears to be in-shock and will benefit from emotional support in coming days. I suspect they are coming to terms with Leroy's dire prognosis in their own way/time. I recommend not approaching family for decisions for a couple days. I will continue to provide support.
[2019-02-04 17:22] LABS: Bun/Creatinine Ratio 19.5 (12.0-20.0); Calcium, Blood 6.8 mg/dL (8.5-10.1); Creatinine, Blood 5.7 mg/dL (0.60-1.20); Potassium, Blood 4.7 mmol/L (3.5-5.5)
--- NOTE | 2019-02-04 19:15 | NUR ---
ASSUME CARE: REPORT RECIEVED FROM [facility] OFF GOING RN. MONITOR IN PLACE SHOWING A FIB HERT RATE 80'S. RESTS QUIETLY WHEN UNDISTURBED. FAMILY AT BEDSIDE ATTENTIVE TO CARES. LUNG SOUNDS CLEAR UPPER LOBES WITH DECREASED SOUNDS IN THE BASES. RESPIRATIONS SHALLOW TACHY RATE IN THE 30'S. ABDOMEN SOFT WITH BOWELS SOUNDS FOUR QUADS. GAYTAN PATENT DRAINING IDALMIS URINE. SKIN DRY FRAGILE NO EDEDMA NOTED. CONTINUE TO MONITOR AND REPORT CHANGE IN PATINET CONDITION.
--- NOTE | 2019-02-04 19:45 | NUR ---
SHIFT SUMMARY: PT RESTING QUIETLY IN BED, ON 3L O2, SECOND DOSE ROXINOL 5MG GIVEN. PT APPEARS COMFORTABLE. PT'S SON STATES HE FEELS PT LOOKS THE MOST COMFORTABLE HE HAS BEEN ALL DAY. TACHYPNEA IN 30S AT THIS TIME. FAMILY DENIES NEEDS. INTRODUCED TO SUNNI MELISSA
[2019-02-05 05:02] LABS: BASOPHILS ABSOLUTE AUTO 0.03 K/mm3 (0.00-0.23); BASOPHILS PERCENT AUTO 0 % (0-2); EOSINOPHILS PERCENT AUTO 0 % (0-6); Hematocrit 30.2 % (37.0-53.0); Hemoglobin 9.5 g/dL (13.5-17.5); IMMATURE GRAN ABSOLUTE AUTO 0.16 K/mm3 (0.00-0.10); IMMATURE GRAN PERCENT AUTO 1 % (0-1); LYMPHOCYTES ABSOLUTE AUTO 2.47 K/mm3 (0.84-5.20); LYMPHOCYTES PERCENT AUTO 11 % (21-46); MONOCYTES ABSOLUTE AUTO 1.32 K/mm3 (0.16-1.47); MONOCYTES PERCENT AUTO 6 % (4-13); Mean Corpuscular HGB 27.7 pg (26.0-34.0); Mean Corpuscular HGB Conc 31.5 g/dL (31.5-36.5); Mean Corpuscular Volume 88 fL (80-100); NEUTROPHILS ABSOLUTE AUTO 17.72 K/mm3 (1.96-9.15); NEUTROPHILS PERCENT AUTO 82 % (41-73); NRBC ABSOLUTE 0.13 K/mm3 (0.00-0.02); NRBC Auto 0.6 /100 WBC (0.0-0.2); Platelet Count 244 K/mm3 (150-400); RDW Coefficient Variation 15.5 % (11.7-14.2); RDW Standard Deviation 50.3 fL (35.1-46.3); Red Blood Cell Count 3.43 M/mm3 (4.30-5.90)
[2019-02-05 05:03] LABS: Mean Platelet Volume 13.3 fL (9.1-12.4)
[2019-02-05 05:23] LABS: Bun/Creatinine Ratio 20.9 (12.0-20.0); Calcium, Blood 6.4 mg/dL (8.5-10.1); Creatinine, Blood 6.08 mg/dL (0.60-1.20); Magnesium, Blood 2.1 mg/dL (1.6-2.4)
--- NOTE | 2019-02-05 06:50 | NUR ---
SHIFT SUMMARY RESTS QUIETLY WHEN UNDISTURBED MONITOR INTACT SHOWING A FIB LUNG SOUNDS CLEAR UPPER LOBES WITH DECREASED SOUNDS IN THE LOWER LOBES HAS TOLERATED CPAP MOST OF THE NOC. ABDOMEN SOFT WITH BOWEL SOUNDS FOUR QUADS.GAYTAN PATENT DRAINING IDALMIS URINE CONTINUE TO MONITOR AND REPORT CHANGE IN PATIENT CONDITION
--- NOTE | 2019-02-05 08:00 | NUR ---
INITIAL ASSESSMENT PATIENT RESPONDING TO VERBAL STIMULI. PATIENT ORIENTED TO SELF, TOWN, AND FAMILY. PATIENT HAS GARBLED SPEECH. PATIENT APPEARS FLAT AND WITHDRAWN. PATIENT WEAK BUT ABLE TO MOVE ALL EXTREMITIES. PATIENT AFEBRILE. PATIENT STATES HE HAS A SORE THROAT THAT STARTED YESTERDAY. PATIENT ON CPAP UPON ENTERING ROOM WITH 3 L NC. PATIENT CHANGED OVER TO 2 L NC AND REMAINS SATTING 90% AND GREATER. LUNGS CLEAR IN UPPER LOBES AND DIMINISHED IN LOWER LOBES AFTER ASKING THE PATIENT TO COUGH. PATIENT HAS WEAK, NONPRODUCTIVE COUGH. PATIENT SOB WITH EXERTION. PATIENT RR 30S TO 40S. DR. HEWITT STATED THAT IT HAS BEEN LIKE THAT FOR ABOUT 4 DAYS NOW. PATIENT IN A.FIB. HR 70S TO 80S. BP STABLE. GI WNL. PATIENT NPO AND WILL HAVE SWALLOW EVAL TODAY BY SPEECH THERAPIST. GAYTAN IN PLACE- DRAINING DARK YELLOW URINE. SKIN IS FRAGILE, OTHERWISE APPEARS CLEAN, DRY, INTACT. SODIUM BICARB INFUSING AT 125 MLS/ HOUR. PATIENT'S DAUGHTER AND AT BEDSIDE. BED LOW, CALL LIGHT IN REACH. WILL CONTINUE TO MONITOR PATIENT FREQUENTLY THROUGHOUT SHIFT.
--- NOTE | 2019-02-05 08:42 | NUR ---
SPEECH THERAPIST INFORMED PRIMARY NURSE, WHO WAS IN ANOTHER PATIENT'S ROOM, THAT PATIENT APPEARED TO NEED DEEP SUCTIONING AFTER SWALLOW EVALUATION. ST STATED THAT PATIENT'S SATS APPEARED TO BE DECREASING BUT DIDNT' HAVE A GREAT WAVEFORM. NURSE ENTERED PATIENT'S ROOM AND NOTICED THAT PATIENT APPEARED TO BE GUPPY BREATHING, PALE IN COLOR. FINGERNAILS APPEARED SLIGHTLY CYANOTIC. PATIENT NT SUCTIONED- MODERATE AMOUNT OF CLEAR, THIN FLUIDS SUCTIONED. O2 TURNED WIDE OPEN. NURSE STERNAL RUBBED PATIENT BUT DID NOT GET RESPONSE. PATIENT STILL HAD PULSE BUT HR SHOWED HE WAS BRADYCARDIC IN THE 30S. DR. HEWITT TO ROOM, ALONG WITH PRIMARY NURSE, CHARGE NURSE, PRECIOUS JAMES, AND NURSE BERNADETTE DAVILA. PATIENT DNR STATUS. FAMILY GRABBED FROM OUT IN HALLWAY AND BROUGHT TO PATIENT'S SIDE. DAUGHTER AND HOLDING PATIENT'S HANDS. PATIENT CLAIMED AT [address].
--- NOTE | 2019-02-05 10:20 | NUR ---
MORTUARY LEAVING UNIT WITH PATIENT.
--- NOTE | 2019-02-05 18:03 | NUR ---
Provided calm presence, gentle funeral planning counselor, and theraputic listening to grieving and family. , Jacque, responded well to these interventions. Offered continued support/funeral planning counselor. Family at peace and grateful pt quickly and without struggle.
== END 2019-02-05 10:16 ==
LOC: ER 17:25 → ICUW 19:31 → ICUE 19:31
PROVIDERS: Emergency Medicine; Hospitalist; ADMIT Internal Medicine
PROC: 5A09457 Assistance with Respiratory Ventilation, 24-96 Consecutive Hours, Continuous Positive Airway Pressure (ICD-10-PCS; principal; 2019-02-01)
DX: I21.19 ST elevation (STEMI) myocardial infarction involving other coronary artery of inferior wall (principal); N17.0 Acute kidney failure with tubular necrosis; A41.9 Sepsis, unspecified organism; I50.31 Acute diastolic (congestive) heart failure; J96.01 Acute respiratory failure with hypoxia; R65.20 Severe sepsis without septic shock; N17.9 Acute kidney failure, unspecified; G93.40 Encephalopathy, unspecified; I13.0 Hypertensive heart and chronic kidney disease with heart failure and stage 1 through stage 4 chronic kidney disease, or unspecified chronic kidney disease; I24.9 Acute ischemic heart disease, unspecified; G20 Parkinson's disease; E11.22 Type 2 diabetes mellitus with diabetic chronic kidney disease; I12.9 Hypertensive chronic kidney disease with stage 1 through stage 4 chronic kidney disease, or unspecified chronic kidney disease; N18.3 Chronic kidney disease, stage 3 (moderate); D64.9 Anemia, unspecified; F32.9 Major depressive disorder, single episode, unspecified; G47.00 Insomnia, unspecified; Z79.82 Long term (current) use of aspirin; F02.80 Dementia in other diseases classified elsewhere, unspecified severity, without behavioral disturbance, psychotic disturbance, mood disturbance, and anxiety; E11.59 Type 2 diabetes mellitus with other circulatory complications
CPT/HCPCS: 0099U; 36415; 51702; 71046; 76770; 80048; 80053; 81001; 82550; 82553; 82570; 82947; 83605; 83735; 83880; 84145; 84300; 84484; 84540; 85025; 85027; 85610; 85730; 87040; 87086; 90686; 92610; 93005; 93010; 93306; 94660; 96365; 96375; 99285-25; C1751; G0008; J0456; J0696; J1170; J1644; J1940; J1956; J7030; J7040; J7050; J7070; J7120